=== PATIENT | female | born 1960 | race Asian ===

== ENCOUNTER 2025-03-09 08:10 | Outpatient (AMB) | payer OTHER, SELFPAY ==
--- OUTSIDE RECORDS SUMMARY | 2025-03-09 08:31 | XMS_ITS | Clinical Summary ---
Author Organization [address] Address [address] [place] [phone] Phone Care Team Providers Care Window Decorator Name Role Phone Referring, No Primary Care Provider Unavailabl e Allergies Active Allergy Reactions Criticality Noted Date Comments Sulfa (Sulfonamide Antibiotics) Anaphylaxis High Acetaminophen Anaphylaxis High 05/14/2024 Wheat Swelling Medium 05/17/2024 Medications ibuprofen (ADVIL,MOTRIN) 600 mg tablet Take 1 tablet (600 mg total) by mouth every 6 (six) hours as needed for pain. 60 tablet Active Additional Information Patient not taking.Reported on 07/16/2024 oxyCODONE (ROXICODONE) 5 mg Immediate Release tablet Take 1 tablet (5 mg total) by mouth every 6 (six) hours as needed for pain. 20 tablet Active Active Problems No known active problems Social History Tobacco Use Types Packs/Day Years Used Date Smoking Tobacco: Never Smokeless Tobacco: Never Tobacco Cessation:Counseling Given: Not Answered Alcohol Use Standard Drinks/Week Comments Not Currently 0 (1 standard drink = 0.6 oz pur e alcohol) Interpersonal Safety Answer Date Record ed Is there anyone in your life that is hurting or threatening you in anyway? Not on file 05/14/2024 Physical Indicators of Abuse No evidence of phys ical abuse 05/14/2024 Comments Unknown Sex and Gender Information Value Date Recorded Sex Assigned at Female 05/14/2024 1:59 PM EST Legal Sex Female 9:38 AM EST Gender Identity Female 05/14/2024 1:59 PM EST Sexual Orientation Not on file Last Filed Vital Signs Vital Sign Reading Time Taken Comments Blood Pressure 136/91 05/17/2024 12:30 PM EST Pulse 78 05/17/2024 12:30 PM EST Temperature 36.2 C (97.1 F) 05/17/2024 11:20 AM EST Respiratory Rate 16 05/17/2024 12:30 PM EST Oxygen Saturation 92% 05/17/2024 12:30 PM EST Inhaled Oxygen Concentration - - Weight 68 kg (149 lb 14.6 oz) 07/16/2024 10:54 A M EDT Height 162.6 cm (5' 4 ) 07/16/2024 10:54 AM EDT Body Mass Index 25.73 07/16/2024 10:54 AM EDT Plan of Treatment Health Maintenance Due Date Last Done Comments HIV screening 1973 Hepatitis C screening 1978 Tetanus adult (Td q 10,TDAP once) 1980 Cervical cancer screening 1981 Breast cancer screening 2000 Lipid disorder screening 2000 Colon cancer screening, Colonoscopy 2005 Diabetes screening 2005 Pneumococcal Vaccine (50+ ye ars) (1 of 1 - PCV) 2010 Shingles vaccine (Shingrix) (1 of 2 - Shingrix (RZV) 2 Dose Standard Series) 2010 Influenza vaccine 11/28/2024 Covid-19 vaccine series (1 - season) 2024 RSV Immunization (1 - 1-dose 75+ series) 12/29/2035 Meningococcal B Vaccine Aged Out No l onger eligible based on patient's age to complete this topic Meningococcal Vaccine Aged Out No rozina jeferson eligible based on patient's age to complete this topic Medical Devices Implanted Type Area Fuel Efficient Automobile Designer Device Identifier Shelf Expiration Date Model / Serial / Lot Peg Threaded Lckg 2.3 X 18 - [id number] Implanted:Qt y: 1 on 05/17/2024 by Jefry Mehta MD at [address] Implant Right: Wrist [employer] [id number] TPLS-231 80-TS / / Screw Cortical Lckg 3.5x9mm - [id number] Implanted:Qt y: 1 on 05/17/2024 by Jefry Mehta MD at [address] Implant Right: Trochanter [employer] [id number] COLS-350 90-TS / / Peg Threaded Lckg 2.3 X 16 - [id number] Implanted:Qt y: 2 on 05/17/2024 by Jfery Mehta MD at [address] Implant Right: Wrist [employer] [id number] TPLS-231 60-TS / / Peg Threaded Lckg 2.3 X 14mm - [id number] Implanted:Qt y: 1 on 05/17/2024 by Jefry Mehta MD at [address] Implant Right: Wrist [employer] [id number] TPLS-231 40-TS / / Plate 3hl Rt Geminus Volar - [id number] Implanted:Qt y: 1 on 05/17/2024 by Jefry Mehta MD at [address] Implant Right: Wrist [employer] [id number]-[id number]- 3HL / / Peg Threaded Lckg 2.3 X 18 - [id number] Implanted:Qt y: 2 on 05/17/2024 by Jefry Mehta MD at [address] Implant Right: Wrist [employer] [id number] TPLS-231 80-TS / / Screw 3.5 X 11mm Geminus - [id number] Implanted:Qt y: 1 on 05/17/2024 by Jefry Mehta MD at [address] Implant Right: Wrist [employer] [id number] PANL-351 10-TS / / Peg Threaded Lckg 2.3 X 14mm - [id number] Implanted:Qt y: 1 on 05/17/2024 by Jefry Mehta MD at [address] Implant Right: Wrist [employer] [id number] TPLS-231 40-TS / / Screw Smooth Non Lckg 3.5x9mm - [id number] Implanted:Qt y: 1 on 05/17/2024 by Jefry Mehta MD at [address] Implant Right: Wrist [employer] [id number] PANL-350 90-TS / / Screw Christian 3.5x10mm Plyax Gemi - [id number] Implanted:Qt y: 1 on 05/17/2024 by Jefry Mehta MD at [address] Implant Right: Wrist SKELETAL DYNAMICS [id number] [facility]-351 00-TS / / Insurance [place]ICAID [place] [facility] [id number]ICAID MEDICAID [place] [facility] [id number] MEDICAID [place]ICA[place] [facility] [id number] [place] Care Teams Window Decorator Relationship Specialty Start Date End Date Referring, No PCP - General 05/29/24
--- OUTSIDE RECORDS SUMMARY | 2025-03-09 08:31 | XMS_ITS | Clinical Summary ---
Author Organization [facility] ity Address [address] [place] [address] Care Team Providers Care Administrative Medical Director Name Role Phone Unavailable Primary Care Provider Unavailabl e Social History Tobacco Use Types Packs/Day Years Used Date Smoking Tobacco: Never Assessed Comments Unknown Sex and Gender Information Value Date Recorded Sex Assigned at Not on file Legal Sex Female 9:15 PM EST Gender Identity Not on file Sexual Orientation Not on file Plan of Treatment Health Maintenance Due Date Last Done Comments Breast Cancer Screening 1960 DTaP,Tdap,and Td Vaccines (1 - Tdap) 12/29/1979 Cervical Cancer Screening: P ap Smear 1981 Pneumococcal Vaccine: 50+ Ye ars (1 of 1 - PCV) 2010 Zoster Vaccines (1 of 2) 2010 Depression Screening 04/30/2024 COVID-19 Vaccine (1 - 2023-2 5 season) 2024 Influenza Vaccine (#1) 2024 RSV Immunization Adult Patie nts (1 - 1-dose 75+ series) 12/29/2035 HIB Vaccines Aged Out No longer eligi ble based on patient's age to complete this topic HPV Vaccines Aged Out No longer eligi ble based on patient's age to complete this topic Hepatitis A Vaccines Aged Out No long er eligible based on patient's age to complete this topic Hepatitis B Vaccines Aged Out No long er eligible based on patient's age to complete this topic IPV Vaccines Aged Out No longer eligi ble based on patient's age to complete this topic MMR Vaccines Aged Out No longer eligi ble based on patient's age to complete this topic Meningococcal ACWY Vaccine Aged Out N o longer eligible based on patient's age to complete this topic Meningococcal B Vaccine Aged Out No l onger eligible based on patient's age to complete this topic RSV Immunization Patients Un linnea 20 months Aged Out No longer eligible b ased on patient's age to complete this topic Varicella Vaccines Aged Out No longer eligible based on patient's age to complete this topic
--- NOTE | 2025-03-09 10:15 | MHC.OFFVISWM ---
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: Details: Start time: 10.04am, End time: 10.49am ?I spent 40 minutes speaking with the patient on the phone plus an additional 5 minutes reviewing and updating records for a total of 45 minutes HPI Comments Details: Previous weight loss efforts: self diet and exercise Wakes up: 7am, Sleeps: 8pm Breakfast: 7.30am (toast) Lunch: 1pm if not working (salad, potatoes, eggs) Dinner: 7pm (meat,vegetables) Snacks: 11am (ice cream or chips), 4pm (same), may wake up at several times at night and have yogurt or cucumber, nuts Exercise: none Beverages: Coffee: none, Tea: none, Soda: none, Juice: none, ETOH: none PFSH Medical History (Updated 03/09/25 @ 10:35 by Deepak Mercado MD) BMI 31.0-31.9,adult Obesity Surgical History (Updated 03/09/25 @ 10:20 by Deepak Mercado MD) History of breast lift Telehealth Telehealth Telehealth Platform: Telephone Location of provider rendering services: practice address Location of patient: address on file Patient Identification confirmed using: Name, : Yes Telehealth method: voice only Patient verbally consented to treatment: Yes Patient verbally consented to billing insurance company: Yes Patient informed of any privacy concerns related to visit: Yes Minutes spent on Phone/Video with Pt.: 45 Assessment & Plan Assessment & Plan (1) Obesity: Code(s): E66.9 - Obesity, unspecified Category: Medical Qualifiers: Obesity type: due to excess calories Obesity classification: adult class 1 (BMI 30 - 34.9) Serious obesity comorbidity presence: without serious comorbidity Body mass index: BMI 31.0-31.9 Qualified Code(s): E66.09 - Other obesity due to excess calories; Z68.31 - Body mass index [BMI] 31.0-31.9, adult Plan: 1. Nutritional counseling. Start with one CELEBRATE REBUILD protein (buy online with the link I gave you) shake (HALF scoop in 8oz low fat unsweetened almond milk) at 8am-10am, 1 protein bar (CELEBRATE protein bars, buy at [facility] [employer], buy online with the link I gave you) ) at 11am-1pm, another CELEBRATE REBUILD protein shake (HALF scoop in 8oz low fat unsweetened almond milk) at 2pm-4pm, dinner at 5pm (8 forks of protein and 8 forks of salad/vegetables) AND another HALF Celebrate protein bar after dinner at 7pm-8pm. EVERY TIME you wake up in the middle of the night, you eat HALF of a protein bar. So you do 2 protein shakes, 1.5 to 2.5 protein bars and one meal per day. Meal to include lean meat (beef, fish, pork, turkey, chicken), or iranian yogurt, or egg whites, or beans with a salad with olive oil and fruits (berries, pears, apples, kiwi). Avoid salt, breads, potatoes, rice, pasta, desserts. 3. Each shake would be drunk slowly, like coffee in a period of 2 hours. 4. Cut each bar in 4 pieces and eat each piece in 30min ?to make each bar last 2 hours. 5. I emphasized the importance of measuring accurately the food portion and measure it when serving the food in plate 6. The meal portions include 8 full-size forks of meat and 8 full-size forks of salad. You always eat the meat portion but you can replace up to 4 forks for salad/vegetables with rice, potatoes or pasta, or a fruit ?if you like. The less you do it the better weight loss will be. 7. One full-size fork is what it can be scooped on the fork without falling aside and not what can be bit with the fork. Use regular forks like those you find in a typical restaurant. 8.? Please buy the body composition scale we discussed and send me weight measurements as soon as possible and then once a week. Always include your diet and exercise plan. 9. Start walking outside daily, tracking calories with a goal of 300 calories per day, daily. Goal is to burn 2000 calories per week on exercise, which means either 300 calories daily, or 400 calories 5 days per week, or 500 calories 4 days per week, or 650 calories 3 days per week. 10. The best choice would be to purchase a stationary bike at home that can track calories. If you get one, please start stationary bike at a resistance level of 4.0 Increase level by 1.0 every 3 min to a max level of 10.0. Stay at this level for 3 min and then return to level 4.0 and repeat same steps until 300 calories are burned. Goal is to burn 2000 calories per week on exercise 11. Goal is to lose at least 1.5-2lbs per week 12. Goal to lose at least 10% of your weight, which is about 18bs. Minimum weight goal: 165lbs 13. Please follow the diet plan exactly without any change. If you don't like something about the plan or you feel hungry you need to communicate with me so I can help you revise the plan. You should not change the plan yourself Orders: Orders Insulin Today E66.09 - Other obesity due to excess calories, Z68.31 - Body mass index [BMI] 31.0-31.9, adult H Pylori Breath Test Today E66.09 - Other obesity due to excess calories, Z68.31 - Body mass index [BMI] 31.0-31.9, adult Complete Blood Count Auto Diff Today E66.09 - Other obesity due to excess calories, Z68.31 - Body mass index [BMI] 31.0-31.9, adult IRON PROFILE Today E66.09 - Other obesity due to excess calories, Z68.31 - Body mass index [BMI] 31.0-31.9, adult Comprehensive Met. Panel Today E66.09 - Other obesity due to excess calories, Z68.31 - Body mass index [BMI] 31.0-31.9, adult C Reactive Protein Today E66.09 - Other obesity due to excess calories, Z68.31 - Body mass index [BMI] 31.0-31.9, adult TSH reflex Free T4 Today E66.09 - Other obesity due to excess calories, Z68.31 - Body mass index [BMI] 31.0-31.9, adult Ferritin Today E66.09 - Other obesity due to excess calories, Z68.31 - Body mass index [BMI] 31.0-31.9, adult Vitamin D 25-OH Total Today E66.09 - Other obesity due to excess calories, Z68.31 - Body mass index [BMI] 31.0-31.9, adult US abdomen comp w elastography Today E66.09 - Other obesity due to excess calories, Z68.31 - Body mass index [BMI] 31.0-31.9, adult XR chest 2V Today E66.09 - Other obesity due to excess calories, Z68.31 - Body mass index [BMI] 31.0-31.9, adult ECG 12 lead EKG Today E66.09 - Other obesity due to excess calories, Z68.31 - Body mass index [BMI] 31.0-31.9, adult FL upper GI w air Today E66.09 - Other obesity due to excess calories, Z68.31 - Body mass index [BMI] 31.0-31.9, adult Hemoglobin A1c Today E66.09 - Other obesity due to excess calories, Z68.31 - Body mass index [BMI] 31.0-31.9, adult Lipid Panel Today E66.09 - Other obesity due to excess calories, Z68.31 - Body mass index [BMI] 31.0-31.9, adult Vitamin B12 and Folate Today E66.09 - Other obesity due to excess calories, Z68.31 - Body mass index [BMI] 31.0-31.9, adult Zinc Today E66.09 - Other obesity due to excess calories, Z68.31 - Body mass index [BMI] 31.0-31.9, adult Vitamin B1 Today E66.09 - Other obesity due to excess calories, Z68.31 - Body mass index [BMI] 31.0-31.9, adult Vitamin A Today E66.09 - Other obesity due to excess calories, Z68.31 - Body mass index [BMI] 31.0-31.9, adult Referrals Nutrition/Dietitian Referral E66.09 - Other obesity due to excess calories, Z68.31 - Body mass index [BMI] 31.0-31.9, adult Behavioral Health Referral E66.09 - Other obesity due to excess calories, Z68.31 - Body mass index [BMI] 31.0-31.9, adult
[2025-03-09 10:27] VITALS: BMI 31.5
== END 2025-03-09 10:50 | disposition home or self-care (01) ==
LOC: HO.HBS 08:10
PROVIDERS: PCP Internal Medicine; Visit Provider Surgery
DX: E66.09 Other obesity due to excess calories (principal); Z68.31 Body mass index [BMI] 31.0-31.9, adult
CPT/HCPCS: 99204

== ENCOUNTER 2025-03-10 08:37 | Outpatient (REF) | payer OTHER, SELFPAY ==
--- NOTE | ~2025-03-10 | XR_ITS ---
EXAMINATION: XR CHEST CLINICAL INFORMATION: E66.09 - Other obesity due to excess calories COMPARISON: None available. TECHNIQUE: PA and lateral views FINDINGS: Hyperinflated lungs. Pulmonary reticular pattern. No consolidation, pleural effusion or pneumothorax. Cardiomediastinal silhouette size is normal. Calcified plaque thoracic aorta. Osteopenia versus the process. A shaped curvature of the thoracolumbar spine. Multilevel spondylosis without gross acute fracture or listhesis. XR/XR chest 2V IMPRESSION: COPD emphysematous type changes. No acute airspace disease. Scoliosis and spondylosis, thoracolumbar spine. Electronically signed by: Jose Hathaway MD 03/10/2025 10:06 AM NEVA
--- OUTSIDE RECORDS SUMMARY | 2025-03-10 08:52 | XMS_ITS | Clinical Summary ---
Author Organization [facility] Address [address] [place] [phone] Phone Care Team Providers Care Camera Supervisor Name Role Phone Referring, No Primary Care [...] this topic Medical Devices Implanted Type Area Pourer Off Device Identifier Shelf Expiration Date Model / Serial / Lot Peg Threaded Lckg 2.3 X 18 - [id number] Implanted:Qt y: 1 on 05/17/2024 by Jefry Mehta MD at [address] Implant Right: Wrist [employer] [id number] TPLS-231 80-TS / / Screw Cortical Lckg 3.5x9mm - [id number] Implanted:Qt y: 1 on 05/17/2024 by Jefry Mehta MD at [address] Implant Right: [employer] [id number] COLS-350 90-TS / / Peg Threaded Lckg 2.3 X 16 - [id number] Implanted:Qt y: 2 on 05/17/2024 by Jefry Mehta MD at [address] Implant Right: Wrist [employer] [id number] TPLS-231 60-TS / / Peg Threaded Lckg 2.3 X 14mm - [id number] Implanted:Qt y: 1 on 05/17/2024 by Jefry Mehta MD at [address] Implant Right: Wrist [employer] [id number] TPLS-231 40-TS / / Plate 3hl Rt Geminus Volar - [id number] Implanted:Qt y: 1 on 05/17/2024 by Jefry Mehta MD at [address] Implant Right: Wrist [employer] [id number]- 3HL / / Peg Threaded Lckg 2.3 X 18 - [id number] Implanted:Qt y: 2 on 05/17/2024 by Jefry Mehta MD at [address] Implant Right: Wrist [employer] [id number] TPLS-231 80-TS / / Screw 3.5 X 11mm Geminus - [id number] Implanted:Qt y: 1 on 05/17/2024 by Jefry Mehta MD at [address] Implant Right: Wrist [employer] [id number] PANL-351 10-TS / / Peg Threaded Lckg 2.3 X 14mm - [id number] Implanted:Qt y: 1 on 05/17/2024 by Jefry Mehta MD at [address] Implant Right: Wrist [employer] [id number] TPLS-231 40-TS / / Screw Smooth Non Lckg 3.5x9mm - [id number] Implanted:Qt y: 1 on 05/17/2024 by Jefry Mehta MD at [address] Implant Right: Wrist [employer] [id number] PANL-350 90-TS / / Screw Christian 3.5x10mm Plyax Gemi - [id number] Implanted:Qt y: 1 on 05/17/2024 by Jefry Mehta MD at [address] Implant Right: Wrist SKELETAL DYNAM[employer] [id number] [facility]-351 00-TS / / Insurance MEDICAID MANAGED [facility] [place] [id number] MEDICAID MEDICAID MANAGED [facility] [place] [id number] MEDICAID MEDICAID MANAGED [facility] [place] [id number] MEDICAID Care Teams Camera Supervisor Relationship Specialty Start Date End Date Referring, No PCP - General 05/29/24
--- OUTSIDE RECORDS SUMMARY | 2025-03-10 08:52 | XMS_ITS | Clinical Summary ---
Author Organization [facility] ity Address [address] [place] [address] Care Team Providers Care Data Governance Consultant Name Role Phone Unavailable Primary Care Provider [...] Depression Screening 04/30/2024 COVID-19 Vaccine (1 - 2024-2 6 season) 2024 Influenza Vaccine (#1) 2024 RSV [...]
[2025-03-10 08:58] LABS: MANUAL DIFF FLAG NO
--- NOTE | 2025-03-10 08:59 | ECG_ITS ---
Test Reason : E66.01 Blood Pressure : */* mmHG Vent. Rate : 103 BPM Atrial Rate : 103 BPM P-R Int : 146 ms QRS Dur : 84 ms QT Int : 372 ms P-R-T Axes : 51 51 49 degrees QTcB Int : 487 ms Sinus tachycardia Otherwise normal ECG No previous ECGs available Referred By: Deepak Mercado Electronically Signed By: HANNA COLON MD
[2025-03-10 09:40] LABS: Hematocrit 40.5 % (37.0-47.0); Hemoglobin 13.5 g/dl (12.0-16.0); Imm Gran Abs Auto 0.03 X10*3/uL (0.00-0.03); Imm Gran Pct Auto 0.3 % (0.0-0.4); Lymphocytes Absolute Auto 3.9 X10*3/uL (1.2-4.9); Mean Corpuscular HGB Conc 33.3 g/dl (31.0-35.0); Mean Corpuscular Hemoglobin 28.1 pg (27.0-33.0); Mean Corpuscular Volume 84.2 fL (80.0-98.0); NRBC Abs Auto 0.000 X10*3/uL (0.0-0.012); NRBC Pct Auto 0.0 /100WBC (0.0-0.2); Platelet Count 409 X10*3/uL (160-400); Red Blood Count 4.81 X10*6/uL (4.20-5.50); White Blood Count 9.1 X10*3/uL (4.8-10.8)
[2025-03-10 10:02] LABS: Alanine Aminotransferase 19 U/L (0-31); Albumin Level 4.1 g/dL (3.5-5.0); Alkaline Phosphatase 81 U/L (39-117); Anion Gap 13 (12-20); Aspartate Amino Transferase 19 U/L (5-31); Blood Urea Nitrogen 14 mg/dL (9-16); Calcium 8.9 mg/dL (8.4-10.2); Carbon Dioxide 25 mmol/L (22-29); Chloride 101 mmol/L (96-108); Cholesterol 261 mg/dL (<200); Estimated Glomerular Filt Rate > 60; HDL Cholesterol 75 mg/dL (>40); Iron 72 mcg/dL (30-160); Percent Iron Saturation 25 % (15-50); Potassium 3.6 mmol/L (3.3-5.1); Sodium 135 mmol/L (135-145); Total Iron Binding Capacity 283 mcg/dL (228-428); Total Protein 7.1 g/dL (6.5-8.0); Triglycerides 130 mg/dL (<150); Unsaturated Iron Binding 211 ug/dL
[2025-03-10 10:20] LABS: Ferritin 53 ng/mL (10-250)
[2025-03-10 10:37] LABS: Folate 9.0 ng/mL (> or = 4.0); Vitamin B12 1094 pg/mL (200-900)
== END 2025-03-10 08:38 | disposition home or self-care (01) ==
LOC: HO.XRAY 08:37
PROVIDERS: PCP Internal Medicine; Visit Provider Surgery
DX: E66.09 Other obesity due to excess calories (principal); Z68.31 Body mass index [BMI] 31.0-31.9, adult
CPT/HCPCS: 36415; 71046; 80053; 80061; 82306; 82607; 82728; 82746; 83036; 83525; 83540; 84425; 84443; 84590; 84630; 85025; 86140; 93005

== ENCOUNTER → 2025-03-10 08:59 | Outpatient (BNV) | payer OTHER, SELFPAY | PROVIDERS: PCP Internal Medicine; Visit Provider Internal Medicine Cardiovascular Disease | DX: R00.0 Tachycardia, unspecified (principal) | CPT/HCPCS: 93010 ==

== ENCOUNTER → 2025-03-10 09:08 | Outpatient (BNV) | payer OTHER, SELFPAY | PROVIDERS: PCP Internal Medicine; Visit Provider Radiology Diagnostic Radiology | DX: E66.09 Other obesity due to excess calories (principal); Z68.31 Body mass index [BMI] 31.0-31.9, adult | CPT/HCPCS: 71046 ==